=== PATIENT | male | born 1970 | race Two or more races ===

== ENCOUNTER 2020-01-03 01:11 | Emergency (ER) | payer MEDICAID ==
--- NOTE | 2020-01-03 01:47 | EDM.PDOC ---
ED HPI GENERAL MEDICAL PROBLEM - General Chief Complaint: Genitourinary Problem Stated Complaint: ABDOMINAL PAIN Time Seen by Provider: 01/03/20 01:28 Source of Information: Reports: Patient History Limitations: Reports: No Limitations - History of Present Illness INITIAL COMMENTS - FREE TEXT/NARRATIVE: This is a 49-year-old male. Apparently a year ago he fell through some boards in a porch and injured his left groin. Since that time he has had intermittent on and off pain in the left groin. Over the last 3 weeks he states that the pain started again but it seems to have gotten much worse and it is sharp throbbing worse with movement type pain. He did have some nausea with the pain but no fever no chills no urinary symptoms. Any recent change in bowel movements. He was seen at that [facility] and they felt he probably had an epididymitis of the left scrotal area but they did not have ultrasound available so they sent him here for evaluation. He did get a Rocephin shot and a Toradol shot in that ER and he was placed on doxycycline 100 mg twice daily for the next 10 days. Apparently the PA that was working there also spoke to Dr. Mayfield the urologist since they were considering a torsion of the testicle but he was thought to be very low risk for that but he still comes to the ER for an ultrasound of the scrotum. When I talked to the patient he seems to be more tender in the left lower quadrant abdomen as well as the spermatic cord and slightly the left testicle as well. Left Groin Pain Score (Numeric/FACES): 7 - Related Data Allergies Allergy/AdvReac Type Severity Reaction Status Date / Time No Known Allergies Allergy Verified 01/03/20 01:27 Home Meds: Home Meds DULoxetine [Cymbalta] 30 mg PO DAILY 01/03/20 [History] FLUoxetine [PROzac] 40 mg PO DAILY 01/03/20 [History] Hydrocodone/Acetaminophen [Hydrocodone-Acetamin 5-325 mg] 1 each PO Q4H PRN #15 tablet 01/03/20 [Rx] Multivitamin [Multivitamins] 1 cap PO DAILY 01/03/20 [History] Prochlorperazine [Compazine] 10 mg PO DAILY 01/03/20 [History] Propranolol [Inderal] 20 mg PO BID 01/03/20 [History] ED ROS GENERAL - Review of Systems Review Of Systems: See Below Constitutional: Denies: Fever, Chills HEENT: Reports: No Symptoms Respiratory: Reports: No Symptoms Cardiovascular: Reports: No Symptoms Endocrine: Reports: No Symptoms GI/Abdominal: Reports: Abdominal Pain, Nausea. Denies: Constipation, Diarrhea, Vomiting : Reports: Other (Testicle pain). Denies: Discharge, Dysuria, Flank Pain Musculoskeletal: Reports: No Symptoms Skin: Reports: No Symptoms Neurological: Reports: No Symptoms Psychiatric: Reports: No Symptoms Hematologic/Lymphatic: Reports: No Symptoms ED EXAM, RENAL/ - Physical Exam Exam: See Below Exam Limited By: No Limitations General Appearance: Alert, WD/WN, No Apparent Distress Eye Exam: Bilateral Eye: Normal Inspection Ears: Normal External Exam Nose: Normal Inspection Throat/Mouth: Normal Inspection, Normal Lips, Normal Voice, No Airway Compromise Head: Normocephalic Neck: Supple Respiratory/Chest: No Respiratory Distress GI/Abdominal: Soft, Other (He is tender in the testicle but there is no swelling or dimpling of the testicle, he is tender along the spermatic cord as well and into the left actual groin area and the left lower quadrant on palpation he is a large individual and it is difficult to palpate in that area due to the mass, I do not feel any hernias noted but I do not think I am palpating effectively) Back Exam: Full Range of Motion Extremities: Normal Inspection, Normal Range of Motion Neurological: Alert, Oriented Psychiatric: Normal Affect, Normal Mood Skin Exam: Warm, Dry Course - Vital Signs Last Recorded V/S: Last Vital Signs Temp 97.3 F 01/03/20 01:20 Pulse 62 01/03/20 01:20 Resp 20 01/03/20 01:20 BP 105/64 01/03/20 01:20 Pulse Ox 94 L 01/03/20 01:20 - Orders/Labs/Meds Orders: Active Orders 24 hr Category Date Time Status Abdomen Pelvis wo Cont [CT] Stat Exams 01/03/20 03:00 Taken Scrotum and Contents [US] Stat Exams 01/03/20 01:35 Taken Meds: Medications Discontinued Medications Generic Name Dose Route Start Last Admin Trade Name Freq PRN Reason Stop Dose Admin Oxycodone/Acetaminophen 2 tab 01/03/20 02:45 01/03/20 02:51 Percocet 325-5 Mg PO 01/03/20 02:46 2 tab ONETIME ONE Administration - Radiology Interpretation Free Text/Narrative:: Sound of the testicles and scrotum reveal no torsion no masses normal blood flow and no swelling or epididymitis noted. CT scan of the abdomen and pelvis with no contrast shows a large left inguinal hernia containing nonobstructed colon. - Re-Assessments/Exams Free Text/Narrative Re-Assessment/Exam: 01/03/20 04:08 I spoke to the patient regarding the CT scan findings. I do not believe he has epididymitis as suggested by his previous examination Tressa. I am going to give him the copy of the CT scan and needs to talk to his [facility] physician on Saturday about the findings because he needs to get this repaired as soon as possible. I explained to him he does not want his colon to become obstructed otherwise that is an emergency and he will have any complications if that occurs. He states he understands. Departure - Departure Time of Disposition: 04:10 Disposition: Home, Self-Care 01 Condition: Fair Clinical Impression: Inguinal hernia of left side without obstruction or gangrene, Colonic disorder - Discharge Information *PRESCRIPTION DRUG MONITORING PROGRAM REVIEWED*: Not Applicable *COPY OF PRESCRIPTION DRUG MONITORING REPORT IN PATIENT GUME: Not Applicable Prescriptions: Hydrocodone/Acetaminophen [Hydrocodone-Acetamin 5-325 mg] 1 each PO Q4H PRN #15 tablet PRN Reason: Pain Instructions: Inguinal Hernia, Adult, [id number] Referrals: Redd Hollingsworth MD [Primary Care Provider] - Forms: ED Department Discharge Additional Instructions: Take the pain medication as needed, Saturday morning you must call your primary care provider and read to him the results of the CT scan that you had tonight, make sure you tell him that you have a very large left inguinal hernia containing nonobstructed colon, this needs to be fixed as soon as possible and he needs to refer you to a surgeon to have this done, if you have unrelenting pain that will not go away you need to be seen as soon as possible do not delay , return to the ER if needed Sepsis Event Note - Evaluation Sepsis Screening Result: No Definite Risk - Focused Exam Vital Signs: Vital Signs Temp Pulse Resp BP Pulse Ox 01/03/20 01:20 97.3 F 62 20 105/64 94 L Date Exam was Performed: 01/03/20 Time Exam was Performed: 04:08 - My Orders Last 24 Hours: My Active Orders 01/03/20 01:35 Scrotum and Contents [US] Stat 01/03/20 03:00 Abdomen Pelvis wo Cont [CT] Stat - Assessment/Plan Last 24 Hours: My Active Orders 01/03/20 01:35 Scrotum and Contents [US] Stat 01/03/20 03:00 Abdomen Pelvis wo Cont [CT] Stat
[2020-01-03] MEDS ORDERED: Acetaminophen/oxyCODONE 325-5 MG Tab PO ONE (02:45)
--- NOTE | 2020-01-03 14:05 | US ---
Testicular ultrasound: Duplex and color Doppler evaluation was obtained of the testicles. No intratesticular abnormality is appreciated. Venous and arterial blood flow are seen within the testicles. Minimal fluid on the right side is seen around the testicle. No additional abnormality is appreciated. Measurements: Right testicle: 4.0 x 1.9 x 2.6 cm Left testicle: 3.5 x 2.1 x 2.3 cm Impression: 1. Minimal right-sided fluid. 2. Testicular ultrasound is otherwise unremarkable. Diagnostic code #2 This report was dictated in MDT I agree with preliminary report from [facility], finalized on 01/03/20, 3:53 AM [place] Daylight Time
--- NOTE | 2020-01-03 14:13 | CT ---
CT abdomen and pelvis Technique: Multiple axial sections were obtained from the top of the liver inferiorly through the pubic symphysis. Intravenous and oral contrast not utilized. Study performed as a ureteral stone protocol. Findings: Visualized lung bases show nothing acute. Liver is mildly enlarged. Liver shows no focal parenchymal abnormality. Previous gastric surgery is noted. Spleen appears within normal limits. Small partially calcified gallstones are seen within the gallbladder. Adrenal glands show no nodule. Kidneys show no abnormal calcifications or hydronephrosis. No ureteral dilatation or ureteral calcifications are seen. Aorta shows atherosclerotic change. No aneurysm is identified. No retroperitoneal adenopathy or mesenteric abnormalities are seen. Left inguinal hernia is seen containing a loop of sigmoid colon. No bowel obstruction is seen. Mild prostate calcifications are noted. No free fluid or inflammatory change is seen. Appendix is seen which is normal in size. Bone window settings were reviewed. Scattered degenerative change is seen within the spine. No acute osseous finding is appreciated. Impression: 1. Left inguinal hernia containing a loop of sigmoid colon. No evidence of bowel obstruction is seen. 2. Partially visualized gallstones. 3. No acute abnormality is otherwise seen. Diagnostic code #3 This report was dictated in MDT I agree with preliminary report from [facility], finalized on 01/03/20, 4:53 AM Central Daylight Time
== END 2020-01-03 04:30 | disposition home or self-care (01) ==
LOC: JD.ED 01:11
DX: K40.90 Unilateral inguinal hernia, without obstruction or gangrene, not specified as recurrent (principal); K63.9 Disease of intestine, unspecified; Z79.899 Other long term (current) drug therapy
CPT/HCPCS: 74176; 76870; 93975; 99284; A9270